=== PATIENT | female | born 1955 ===

== ENCOUNTER 2018-08-11 17:12 | Emergency (ER) | payer OTHER ==
[2018-08-11 17:17] VITALS: BP 146/104; PULSE 101; RESP 1; TEMP 98.6; O2SAT 96
--- NOTE | 2018-08-11 17:36 | C.PDOC ---
History Of Present Illness 63 y/o female comes in complaining of right 3rd digit injury prior to arrival. Patient states her finger accidentally got caught in a conveyor belt at work. She complains of foreign body in her finger and states pain worsens with movement. R 3 FINGER INJURY [employer]. FINGER ACCID CAUGHT IN CONVEYOR BELT @ WORK, CO FOREIGN BODY IN FINGER. PAIN W ROM EXAM EXT R FINGER . B/L VALGUS DEVIATION 3RD FINGER, LIMITED ROM SKIN +METALLIC FB EMBEDDED DISTAL R PHALANX NO ACTIVE BLEED NEURO INTACT Chief Complaint (Nursing): Upper Extremity Problem/Injury History Per: Patient History/Exam Limitations: no limitations Onset/Duration Of Symptoms: Hrs Current Symptoms Are (Timing): Still Present Past Medical History Reviewed: Historical Data, Nursing Documentation, Vital Signs Vital Signs: Last Vital Signs Temp 98.6 F 08/11/18 17:14 Pulse 101 H 08/11/18 17:14 Resp 1 L 08/11/18 17:14 BP 146/104 H 08/11/18 17:14 Pulse Ox 96 08/11/18 17:14 - Medical History PMH: HTN Family History: States: No Known Family Hx - Social History Hx Alcohol Use: No Hx Substance Use: No - Immunization History Hx Tetanus Toxoid Vaccination: No Hx Influenza Vaccination: No Hx Pneumococcal Vaccination: No Review Of Systems Except As Marked, All Systems Reviewed And Found Negative. Constitutional: Negative for: Fever Cardiovascular: Negative for: Chest Pain Respiratory: Negative for: Shortness of Breath Gastrointestinal: Negative for: Vomiting Musculoskeletal: Positive for: Other (Right 3rd digit pain) Physical Exam - Physical Exam Appears: Non-toxic, No Acute Distress Skin: Warm, Dry, Other (Metallic foreign body embedded in distal right phalanx, no acitve bleeding) Head: Atraumatic, Normacephalic Eye(s): bilateral: Normal Inspection Oral Mucosa: Moist Neck: Supple Chest: Symmetrical Cardiovascular: Rhythm Regular, No Murmur Respiratory: Normal Breath Sounds, No Rales, No Rhonchi, No Wheezing Extremity: Other (bilateral valgus deviation right 3rd digit, limited ROM) Neurological/Psych: Oriented x3, Normal Speech, Normal Motor, Normal Sensation, Normal Reflexes ED Course And Treatment O2 Sat by Pulse Oximetry: 96 (RA) Pulse Ox Interpretation: Normal Progress Note: Right hand XR ordered. Patient was given augmentin, motrin, and tenivac. Laceration - Laceration Repair No standard instances Wound Length (In cm): .001 Description Of Wound: Irregular (PUNCTURE WOUND), Contaminated With: Wound Cleansed With: Betadine, Sterile Saline Anesthesia: Lidocaine 1% Wound Examination: Irrigated With Saline, Foreign Material Removed Manually Disposition Counseled Patient/Family Regarding: Studies Performed, Diagnosis, Need For Followup, Rx Given - Disposition Referrals: Maxime Salguero MD [Staff Provider] - Disposition: HOME/ ROUTINE Disposition Time: 18:21 Condition: IMPROVED Prescriptions: Amoxicillin/Clavulanate [Augmentin 875 MG-125 MG] 1 tab PO BID #14 tab Ibuprofen [Motrin] 600 mg PO Q6 #30 tab Instructions: Wound Care (DC) Forms: [facility] (Latvian), Work Excuse - Clinical Impression Clinical Impression: Foreign body finger, Puncture wound of finger - Scribe Statement The provider has reviewed the documentation as recorded by the Stephaniibhernesto Burkett Provider Attestation: All medical record entries made by the Stephaniibhernesto were at my direction and personally dictated by me. I have reviewed the chart and agree that the record accurately reflects my personal performance of the history, physical exam, medical decision making, and the department course for this patient. I have also personally directed, reviewed, and agree with the discharge instructions and disposition. Orthopedic Care Application Of:: Finger Splint
[2018-08-11] MEDS ORDERED: Lidocaine 1% Inj (20ml) INFIL ONE (17:45)
[2018-08-11] MEDS ORDERED: Lidocaine Hydrochloride 5 ML INJ ONE (17:53)
[2018-08-11] MEDS ORDERED: Amoxicillin-Clav 875-125 mg Tab PO STA (18:10)
[2018-08-11] MEDS ORDERED: Tetanus/Diphtheria Toxoids 0.5 ml Syringe IM ONE ×2 (18:13→18:26)
[2018-08-11] MEDS ORDERED: Amoxicillin-Clav 875-125 mg Tab PO ONE (18:25)
--- NOTE | 2018-08-12 08:44 | RAD ---
Date of service: 08/11/2018 PROCEDURE: Right middle finger radiographs. HISTORY: s/p trauma f.o. COMPARISON: None. TECHNIQUE: AP radiograph of the right hand, as well as spot oblique and lateral images of right middle finger were obtained. FINDINGS: RIGHT MIDDLE FINGER: Right middle finger normal, without fracture of focal lesion. . There is a radiopaque metallic like foreign body in the dorsal soft tissues overlying the 3rd distal phalangeal level. No cortical interruption no intraosseous extension suggested JOINTS: Normal. SOFT TISSUES: As above OTHER FINDINGS: None. IMPRESSION: No fracture-radiopaque metallic like foreign body in the dorsal soft tissues overlying the 3rd distal phalangeal level. No cortical interruption no intraosseous extension suggested
== END 2018-08-11 18:27 | disposition home or self-care (01) ==
LOC: C.ER 17:12
DX: S61.242A Puncture wound with foreign body of right middle finger without damage to nail, initial encounter (principal); W31.89XA Contact with other specified machinery, initial encounter; Y92.89 Other specified places as the place of occurrence of the external cause; Y99.0 Civilian activity done for income or pay